=== PATIENT | female | born 1990 ===

== ENCOUNTER 2022-10-01 02:37 | Emergency (ER) | payer SELFPAY ==
[2022-10-01 03:25] VITALS: BP 102/70; PULSE 79; RESP 16; TEMP 37.2; O2SAT 98; BMI 25.7
[2022-10-01 03:50] VITALS: BP 93/59; PULSE 75; RESP 18; O2SAT 98
--- NOTE | 2022-10-01 04:15 | ED.NURSE ---
Pt's wound dressed with bacitracin and bandage.
--- NOTE | 2022-10-01 04:59 | ED_ITS ---
HPI - General Adult General Chief complaint: Ear/Nose/Throat Problem Source: patient Mode of arrival: ambulatory History of Present Illness HPI narrative: Patient was cared for during EMR down time. This note is placed retroactively. Some elements were cut and paste from a word document kept during time of patient management. Patient reports laceration to her leg just a few minutes prior to coming to the ED. She was drinking at a local bar and dancing when she accidentally put her foot into a bucket containing I sent here that was on the floor causing her to fall over. She scraped her leg on the side of the back it, causing a l aceration. No head injury, no loss of consciousness. She reports that she only had 1 beer. She can bear weight without difficulty, move her ankle knee and foot without complication. She is concerned that the laceration would need stitches. She does not use anticoagulants. Denies chance of . She is not sure when her last tetanus shot was performed. Denies any other injuries. Past medical history notable for viral pericarditis last April, no complications. Denies long-term medications, denies allergies, socially with no pertinent travel or other impairing substances. Exam Narrative: Exam Narrative: Generally she is awake alert pleasant cooperative not distressed. Blood pressure 102/70 heart rate 79 respiratory 16 O2 sats 98% on room air temp of 98.9?. The head is atraumatic eyes with normal-appearing pupils conjunctiva, normal conjugate gaze. Cardiovascular exam shows normal pedal pulses bilaterally with regular rate and rhythm. Breathing is nonlabored, can speak in full sentences with no increased respiratory effort. Skin shows only a single laceration, 4.5 cm in width, diagonal and linear over the left inner lower leg. Depth is to the fatty layer. No tendon or muscular involvement. Gait about 1 cm. Neurological exam, she can move both legs without difficulty. Muscular exam shows no effusions, injury to knees ankles or other joints. Medical Decision Making MDM Narrative Medical decision making narrative: Procedure:? Laceration repair.? Area was examined, 4 cm total length diagonal linear laceration noted on left inner lower leg.? Gapes about a total of 1 cm, slight bleeding and oozing.? Does not close well with pulling on the skin lines for reapproximation.? Sutures recommended.? Area was cleansed with alcohol wipe and injected with a total of 4 mL of 2% lidocaine with epinephrine with good anesthesia and blanching.? Was then cleansed with chlorhexidine.? Once hemostatic, 4 simple interrupted 4-0 Ethilon sutures were placed with excellent closure and hemostasis.? Patient tolerated well.? Tetanus shot is updated today and wound care discussed. Assessment laceration, now status post closure.? Plan suture removal in 7-10 days in clinic, please call for appointment. Discharge Plan Discharge Clinical Impression: Laceration of leg Patient Disposition: Home, Self-Care Condition: Improved Instructions: Laceration (DC) Additional Instructions: Lee Moore, Rm 6: We placed 4 stitches in your left inner leg.? Keep this covered with antibiotic ointment and or plain Vaseline and a Band-Aid.? He will need to make an appointment to have the stitches removed in the clinic in 7-10 days.? Please keep the original dressing on for the 1st 24 hours.? Following 24 hours, you may gently wash this once daily, reapply antibiotic ointment and or Vaseline and cover with a Band-Aid again.? It is normal to have a little bit of itching, tenderness, mild redness.? Any significant redness, increased swelling or pus drainage would warrant repeat evaluation.? Your tetanus shot was updated today.? You need a booster every 10 years.? I do not see any other significant signs of injury to the leg today.? If you have persistent pain lasting longer than a week, I would make a follow-up in the clinic for repeat evaluation Activity Level: No Restrictions Discharge Diet: Regular Follow Up/Referrals: Provider,Not a Local [Primary Care Provider] - Stand Alone Forms: [id number] Info Instructions
== END 2022-10-01 04:15 | disposition home or self-care (01) ==
PROVIDERS: Emergency Provider Family Medicine
DX: S81.812A Laceration without foreign body, left lower leg, initial encounter (principal); W26.9XXA Contact with unspecified sharp object(s), initial encounter
CPT/HCPCS: 12002; 90471; 90714; 99282; 99283

== ENCOUNTER 2024-04-18 19:50 | Outpatient (CLI) | payer BC, SELFPAY ==
[2024-04-18 19:53] VITALS: BP 113/78; PULSE 98; RESP 22; TEMP 36.9; O2SAT 96; BMI 28.7
--- NOTE | 2024-04-18 20:27 | ED.GENADULT ---
HPI - General Adult General Chief complaint: OB/Uterine Contractions Stated complaint: 26 weeks preg, bleeding, high risk Time Seen by Provider: 04/18/24 20:11 History of Present Illness HPI narrative: This 33-year-old female is 26 weeks and comes in with some suprapubic pain and small amount of blood discharge. She is anxious about these findings. She arrives with normal vital signs. She typically would go to the OB department however they were very busy there at the time apparently so the patient was brought in here and 1 of the OB nurses came to do monitoring. Related Data Home Medications ?Medication ?Instructions ?Recorded ?Confirmed docosahexaenoic acid PO 04/18/24 Allergies Allergy/AdvReac Type Severity Reaction Status Date / Time No Known Drug Allergies Allergy Verified 04/18/24 20:02 Review of Systems Status of ROS: Reports: 10 or more systems reviewed and unremarkable except as noted in History and below Narrative: Constitutional: No fevers, no weight gain or loss. Eyes: No discharge. No vision changes. HENT: No congestion, no sore throat, no ear pain. Cardiovascular: No chest pain, no palpitations. Respiratory: No shortness of breath, no wheezes, no cough. Gastrointestinal: No vomiting, no diarrhea. Abdominal pain as described above. Genitourinary: No dysuria, no hematuria. Musculoskeletal: Normal range of motion. Skin: No rashes, no pruritis. Neurological: No dizziness, weakness, sensory change, speech change. Endo/Heme/Allergies: No bruising or bleeding. No polydipsia. Pysch: no suicidality, no anxiety, no insomnia. All other systems reviewed and are negative. [facility] Medical History (Updated 04/18/24 @ 20:30 by Dion Norris MD) Acute viral pericarditis ?I30.1 - Infective pericarditis (ICD-10) Social History Smoking Status: Never smoker Do you use any of these nicotine containing products: None Second hand tobacco smoke exposure: No How often do you have a drink containing alcohol: never AUDIT-C Alcohol total score: 0 Non-prescribed substance use: denies use Exam Narrative: Exam Narrative: Constitutional: Well-developed, well-nourished, no acute distress. HEENT: Normocephalic, atraumatic. Neck: Normal range of motion. Nontender. Supple. Heart: Intact distal pulses. Lungs: No chest discomfort. No wheezes, rhonchi, or rales. Abdomen: Gravid. Back: Normal range of motion. Extremities: Normal range of motion. No injury. Skin: Intact. No rash. Warm. No erythema or pallor. Neurologic: No altered sensation. No weakness. Alert and oriented. Psychiatric: No suicidality. No anxiety or depression. No insomnia. Nursing notes and vitals signs are reviewed. Const: Vital Signs, click to edit/add: Vital Signs - 24 hr 04/18/24 19:53 Temperature 98.4 F Pulse Rate [Pulse Oximeter] 98 Respiratory Rate 22 Blood Pressure [Ri ght Upper Arm] 113/78 Pulse Oximetry 96 Oxygen Delivery Me thod Room Air Course Vital Signs Vital signs: Initial Vital Signs Temperature 98.4 F 04/18/24 19:53 Temperature Source Temporal Artery Scan 04/18/24 19:53 Pulse Rate 98 04/18/24 19:53 Respiratory Rate 22 04/18/24 19:53 Blood Pressure 113/78 04/18/24 19:53 Blood Pressure Mean 89 04/18/24 19:53 Blood Pressure Position Sitting 04/18/24 19:53 Pulse Oximetry 96 04/18/24 19:53 Oxygen Delivery Method Room Air 04/18/24 19:53 Vital Signs Temperature 98.4 F 04/18/24 19:53 Pulse Rate 98 04/18/24 19:53 Respiratory Rate 22 04/18/24 19:53 Blood Pressure 113/78 04/18/24 19:53 Pulse Oximetry 96 04/18/24 19:53 Oxygen Delivery Method Room Air 04/18/24 19:53 Temperature 98.4 F 04/18/24 19:53 Pulse Rate 98 04/18/24 19:53 Respiratory Rate 22 04/18/24 19:53 Blood Pressure 113/78 04/18/24 19:53 Pulse Oximetry 96 04/18/24 19:53 Oxygen Delivery Method Room Air 04/18/24 19:53 Medical Decision Making MDM Narrative Medical decision making narrative: This patient is 26 weeks comes in for evaluation of her as she is having some abdominal pain small amount of blood on toilet paper. An OB nurse came and did monitoring and everything is looking really good. When there is availability in the OB department the patient will be transferred there for further testing and monitoring. Discharge Plan Discharge Clinical Impression: Abdominal pain affecting Patient Disposition: Admit to OB Condition: Stable Prescriptions: No Action docosahexaenoic acid [ DHA] PO Follow Up/Referrals: Provider,Not a Local [Primary Care Provider] -
--- NOTE | 2024-04-18 20:51 | CRLHL7_ITS ---
For Patients: As a result of the Century Cures Act, medical imaging exams and procedure reports are released immediately into your electronic medical record. You may view this report before your referring provider. If you have questions, please contact your health care provider. INDICATION: Check cervical length COMPARISON: None. TECHNIQUE: Real-time hahn-scale imaging of the pelvis was performed. FINDINGS: heart rate 157 beats per minute. Cervix is closed and measures 4.5 cm. Normal amniotic fluid with single deepest pocket 5.1 cm. Vertex position. Posterior placenta. IMPRESSION: Transvaginal measurement of the cervix performed which demonstrates the cervix to be closed and measures 4.5 cm. Dictated by Shay Santos MD @ 04/21/2024 9:10:44 AM (Electronically Signed)
[2024-04-18 21:03] VITALS: BP 117/56; PULSE 84; RESP 16; TEMP 36.7; O2SAT 98
[2024-04-18 21:19] LABS: Appearance Urine Cloudy (Clear); Bilirubin Urine Negative (Negative); Blood Urine 1+ (Negative); Color Urine Amber (Yellow); Glucose Urine Negative (Negative); Ketones Urine 2+ (Negative); Leukocyte Esterase Urine 1+ (Negative); Nitrite Urine Negative (Negative); Protein Urine 1+ (Negative); Specific Gravity Urine >= 1.030 (1.000-1.030)
[2024-04-18 21:22] LABS: Clue Cells <20% Clue Cells Seen (None Seen); Trichomonas No Trichomonas Seen (None Seen); Yeast No Yeast Seen (None Seen)
[2024-04-18 21:33] LABS: Bacteria Urine Moderate; Mucus Urine Moderate; Squamous Epithelial Cell Urine Moderate (None-Few)
[2024-04-18 21:54] LABS: Fetal Fibronectin* Negative (Negative)
[2024-04-18] MEDS: LACTATED RINGERS 1000 ML 1,000 ML 999 ML IV (22:24)
[2024-04-18] MEDS: NITROFURANTOIN MONOHYD MACRO 100 MG CAPSULE PO (22:44)
[2024-04-18] MEDS: metroNIDAZOLE 500 MG TABLET PO (22:45)
--- NOTE | 2024-05-08 13:19 | PC.OBNST ---
The provider's electronic signature indicates the NST is reactive/appropriate for gestational age. *Note to provider: If an addendum is required, open the patient's chart and click on the note under the Nurse/Allied Health tab.
== END 2024-04-18 23:05 | disposition home or self-care (01) ==
LOC: ED 20:58 → OB OUT 21:00 → OB 21:02
PROVIDERS: Emergency Provider Emergency Medicine Emergency Medical Services; Visit Provider Obstetrics & Gynecology
DX: Z34.90 Encounter for supervision of normal pregnancy, unspecified, unspecified trimester (principal)
CPT/HCPCS: 76815; 76817; 81001; 81003; 84112; 87086; 87210; 99284; G0463; A9270; J7120

== ENCOUNTER 2024-06-04 08:18 | Outpatient (CLI) | payer BC, SELFPAY | END 2024-06-04 08:19 | disposition home or self-care (01) | LOC: NFLDREF 06-06 04:18 | PROVIDERS: Visit Provider Obstetrics & Gynecology | DX: R73.09 Other abnormal glucose (principal) | CPT/HCPCS: 82951; 82952 ==

== ENCOUNTER 2024-06-18 12:49 | Outpatient (CLI) | payer BC, SELFPAY | END 2024-06-18 12:50 | disposition home or self-care (01) | PROVIDERS: Visit Provider Obstetrics & Gynecology | DX: Z34.91 Encounter for supervision of normal pregnancy, unspecified, first trimester (principal); Z3A.09 9 weeks gestation of pregnancy | CPT/HCPCS: 82728; 86787 ==

== ENCOUNTER 2024-07-02 15:37 | Outpatient (CLI) | payer BC, SELFPAY ==
[2024-07-03 15:34] LABS: Strep B DNA Probe Negative (Negative)
[2024-07-03 15:45] LABS: Strep B Susceptibility Needed? No
== END 2024-07-02 15:38 | disposition home or self-care (01) ==
LOC: NFLDREF 15:39
PROVIDERS: Visit Provider Obstetrics & Gynecology
DX: Z34.93 Encounter for supervision of normal pregnancy, unspecified, third trimester (principal); Z3A.36 36 weeks gestation of pregnancy
CPT/HCPCS: 87081; 87653

== ENCOUNTER 2024-07-09 05:16 | Inpatient (IN) | payer BC, SELFPAY ==
[2024-07-09] VITALS (19 sets, daily range): BP systolic 95–111; BP diastolic 62–76; PULSE 59–82; RESP 16–18; TEMP 36.4–36.6; O2SAT 96–100; BMI 32.5
[2024-07-09] MEDS: LACTATED RINGERS 1000 ML 1,000 ML 1200 ML IV ×2 (05:52→07:30)
[2024-07-09 06:13] LABS: Hemoglobin* 10.6 gm/dL (12.0-16.0)
[2024-07-09 06:26] LABS: Eosinophils Percent Auto 2.7 % (0.0-7.0); Hematocrit 34.2 % (33.0-51.0); Immature Granulocytes Pct Auto 0.6 %; Mean Corpuscular HGB Conc 31 gm/dL (32-36); Mean Corpuscular Hemoglobin 24 pg (26-34); Mean Corpuscular Volume 77 fL (80-100); Monocytes Percent Auto 6.2 % (0.0-11.0); Neutrophils Percent Auto 70.5 % (42.0-72.0); Platelet Count* 192 K/uL (140-440); RDW Coefficient of Variation % 17.2 % (11.5-15.5); Red Blood Count 4.44 m/uL (4.00-5.20); White Blood Count* 12.52 K/uL (4.50-11.00)
[2024-07-09 06:27] LABS: Slide Review Reflex No
--- NOTE | 2024-07-09 07:22 | P.OBHP_ITS ---
OB - H&P: HPI History of Present Illness Chief complaint: Maternity Narrative: Lee Moore is a 34 year old female admitted for scheduled repeat and surgical sterilization in the setting of newly diagnosed oligohydramnios. 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 Patient is feeling well today, no acute concerns. Denies contractions, vaginal bleeding or leaking of fluids. Endorses active movement. Understands why delivery is recommended at early term per MFM consult yesterday, discussed associated risks/benefits. Specific Issues/Plans G 5 P 3113 Transfer of care at 31 weeks Last pap 08/24/21 NIL -HPV. # history of x3. Plan for repeat delivery. # desires permanent sterilization at time of . Private insurance. # advanced maternal age Genetic screening: NIPT low risk Level 2 ultrasound: no anomalies; growth is consistent with dates; normal NELSON; cervix long and closed # history of preeclampsia. Patient states she wasn't advised to initiate daily aspirin. # history of prior children with congenital anomalies. -One daughter born with multicystic dysplastic right kidney. Alive and Well. -One daughter born with hypoplastic left heart syndrome. . Level 2US 02/27/24: normal Echo 03/26/24: normal cardiac activity. Plan: echo between 2 and 4 months; no change in delivery; no further f/u in cardiology Growth ultrasound every 4 weeks starting at 28 weeks with [facility] # myomata 3cm suggest serial growth ultrasounds if clinically relevant # failed her 1 hour glucose (136) and never scheduled her 3 hour glucose. (Their cut off was 130) To return to clinic next week for 3 hour glucose: passed # prior with growth restriction # rubella non immune. Recommend PP vaccine Covid: declined on 06/1812/20/23 labs: blood type O positive, antibody screen negative, hemoglobin 12.7, platelets 203, rubella 0.74/no detectable antibody, TPPA nonreactive, HBsAG nonreactive, HIV nonreactive, gc/chlam neg/neg, urine culture no growth, hepati tis c non reactive 01/31/24: NIPT: negative 04/25/24: hgb 11.1, 1 hour glucose: 136 Varicella titer - immune 1st ultrasound 12/20/23:live IUP; myomata 3cm - suggest serial growth if clinically relevant; corresponding sonographic and menstrual EGA and EDC Level 2 ultrasound on 02/27/24: no anomalies; growth is consistent with dates; normal NELSON; cervix long and closed 05/07/24: cephalic, posterior placenta, MVP 5.3 cm, EFW 22%, AC 12% 06/17/24 EFW 2192g at 31%ile with AC 42%ile. Follow up US around mid/late June (37 weeks) with M History of Present Dating criteria: based on LMP care: good care Ultrasounds: normal mid trimester US and other (Normal level 2 and echo) Labs Blood type: O (+) positive PFSH PFSH Medical History History of vaginal delivery (07/2007) Acute viral pericarditis ?I30.1 - Infective pericarditis (ICD-10) Surgical History (Updated 06/03/24 @ 21:56 by Joann Barraza CNP) History of 3 sections ?Z98.891 - History of uterine scar from previous surgery (ICD-10) Social History What is your current living situation?: I presently have a place to live Problems where you live: no known problems In the past 12 months, utilities in danger of being shut off: no In past 12 months, lack of transportation kept you from medical appts, meetings, work, or getting things needed for daily living: no In the past 12 mos, have been you worried that your food would run out before you had money to buy more?: never true In the past 12 mos, the food you bought just didn't last and you didn't have money to buy more?: never true Smoking Status: Never smoker Do you use any of these nicotine containing products: None Second hand tobacco smoke exposure: No How often do you have a drink containing alcohol: never AUDIT-C Alcohol total score: 0 Non-prescribed substance use: denies use How often does anyone, including family, friends and others, physically hurt you : never How often does anyone, including family, friends and others, insult or talk down to you: never How often does anyone, including family, friends and others, threaten you with harm: never How often does anyone, including family, friends and others, scream or curse at you: never Little interest or pleasure in doing things: several days Feeling down, depressed, or hopeless: several days Meds Home Medications and Allergies Home Medications ?Medication ?Instructions ?Recorded ?Confirmed ?Type ferrous sulfate 325 mg (65 mg 325 mg PO DAILY 07/09/24 07/09/24 History iron) tablet (Feosol) Allergies Allergy/AdvReac Type Severity Reaction Status Date / Time No Known Drug Allergies Allergy Verified 07/09/24 05:52 OB - H&P: Exam Physical Exam: Vital signs: Pulse BP Pulse Ox 80 109/76 97 07/09/24 05:45 07/09/24 05:45 07/09/24 05:46 Narrative: Physical exam: General: No acute distress Psych: Alert and oriented x3, full affect Heart: Regular rate and rhythm, no murmur rub or gallop Lungs: Clear to auscultation bilaterally Abdomen: Gravid. Otherwise soft and nontender. heart rate: Reactive NST. Baseline of 130 beats per minute, moderate variability, accelerations present, decelerations absent. Presentation: Cephalic by US. EFW 5lb 14 oz by M US yesterday OB - Results Labs Labs: Short CBC 07/09/24 Range/Units 05:54 WBC 12.52 H (4.50-11.00) K/uL Hgb 10.6 L (12.0-16.0) gm/dL Hct 34.2 (33.0-51.0) % Plt Count 192 (140-440) K/uL Assessment and Plan Assessment and plan (1) History of 3 sections: Problem comment: Son 08/2009; 12/2012 (daughter baby at 1Y from hypoplastic L heart); Daughter 04/2017. Status: Acute (2) Uterine fibroid: Status: Acute (3) History of poor growth: Status: Acute (4) History of gestational hypertension: Status: Acute (5) Family history of congenital anomalies: Problem comment: One child with multicystic dysplastic right kidney. Alive and well. One child with hypoplastic left heart syndrome. at 11mo of age. Status: Acute (6) Advanced maternal age in multigravida: Status: Acute Plan Ms. Moore is a 34yo admitted for repeat and surgical sterilization at 37w0d GA. Delivery was recommended by MFM in the setting of new oligohydramnios yesterday (NELSON 2.4cm, MVP 2.4cm). is otherwise complicated by AMA, Hx of C/S x3, history of congenital anomalies (hypoplasic left heart syndrome, multicystic kidney disease), history of preE and FGR in [place] or . Admit for scheduled repeat C/S and surgical sterilization. We discussed bilateral salpingectomy vs bilateral tubal ligation if entire tube cannot be safely removed. Patient strongly desires surgical sterilization. Discussed risks of surgery including bleeding, infection, damage to surrounding structures and medical complications such as VTE, heart attack and stroke. All questions a nswered. Written consent obtained. - Plan perioperative ancef - T/S and CBC on admission - Desires surgical sterilization, this has been discussed over several visits. Consent obtained. Private insurance.
[2024-07-09] MEDS: CEFAZOLIN 2 GM INJ IVP (07:27)
--- NOTE | 2024-07-09 08:35 | PM.OBPRCCS ---
Procedure Time Seen by Provider: 08:35 Date of procedure: 07/09/24 Pre-op diagnosis: Prior C/S x3, oligohydramnios, AMA, history of congenital anomaly in prior pregnancies, history of HTN and FGR Procedure Done: Global Will [facility] bill your pro fee for this procedure?: Yes Blood Loss Measurement Type: QBL (345) Bakri Used: No IV fluids (mL): 1,900 Urine Output (mL): 100 Surgeon: Wei Lloyd MD Anesthesia Type: Spinal Findings: Mild adhesive disease of the in for rectus abdominus to the peritoneum Mild adhesive disease between the bladder and lower uterine segment Bilateral fallopian tubes and ovaries notable for scattered tiny (<1cm) simple appearing cysts, right paratubal cyst adhesed to omentum life Live-born female Procedure Name: Repeat delivery, bilateral salpingectomy, removal of right paratubal cyst Procedure Description: Patient was taken to the operating room with IV running. She received cefazolin in preoperative prophylaxis. Spinal anesthesia was administered. Bailey catheter was inserted. She was prepped and draped in the usual sterile fashion. Anesthesia was tested and found to be adequate. A low-transverse skin incision along prior incision was made with a scalpel and carried through to the underlying layer of fascia with the scalpel. The subcutaneous fat was dissected off the underlying fascia with Bovie and blunt dissection. The fascia was nicked in the midline with a scalpel, and this incision was extended laterally with scissors. The rectus muscles were in the midline. Peritoneum was identified and entered bluntly. Resistance was noted with inferior rectus muscle adhesions to peritoneal cavity. These were taken down with care utilizing Bhavya forceps and electrocautery, ensuring safety of the bladder. Bovie and blunt dissection was used to widen the opening laterally. Yared O retractor was inserted and tightened down, providing excellent visualization of the lower uterine segment. The bladder reflection was found to be advanced along the lower uterine segment. A bladder flap was created with a combination of sharp and blunt dissection. A sinus of the left lower uterine segment was noted, care was made to avoid this with hysterotomy incision. Low-transverse uterine incision was made with a scalpel. Incision was widened bluntly. The infant's head was grasped through the hysterotomy in direct OP position and elevated to the hysterotomy. The remainder of the body delivered without incident with the help of fundal pressure. No nuchal cord was noted. Cord was clamped and cut after 30 seconds. was handed off to attending nurses. The placenta was delivered with gentle traction on the cord. The uterus was cleaned of all clots and debris with the dry lap pad. The hysterotomy was reapproximated with 0 Vicryl in a running, locked fashion. Second layer of the same suture was used in imbricating fashion to obtain hemostasis. Uterine tone was initially suboptimal, where an additional 10u of pitocin were administered (40U total). The adnexa were examined with findings noted above. The cul-de-sac and gutters were cleansed with dampened laparotomy sponge, removing any further clots and debris. Patient provided verbal consent again for surgical sterilization. The right fallopian tube and ovary were inspected with paratubal cyst noted from fimbriated end and adhesed to omentum. The distal paratubal cyst was grasped with Allis and was ligated and transected free from omentum with Ligasure. Excellent hemostasis noted. The fallopian tube was elevated with two Babcocks, where the tube was sequentially ligated and transected from the mesosalpinx using the Ligasure cautery device. We proceeded from the fimbriated end, lateral to medial, and the tube was amputated at the right uterine cornua. The same procedure was completed on the left. Specimens sent for pathology. Excellent hemostasis was noted throughout salpingectomy site. Hysterotomy was re-examined and hemostasis was noted. The Yared O retractor was removed. The hysterotomy was reexamined and found to be hemostatic. The rectus muscles were examined and found to be hemostatic. The fascia was reapproximated with looped PDS in a running fashion. Subcutaneous fat was irrigated and Bovie used on oozing vessels. The subcutaneous fat was reapproximated with 2-0 vicryl suture in a running fashion. The skin was closed with a subcuticular stitch of 3-0 monocryl. Surgical glue was applied above this. Patient tolerated procedure well was taken to recovery area in stable condition. Surgical debrief was completed. Specimens were right and left fallopian tube, right paratubal cyst (sent together) and placenta. details: - Liveborn female fetus - weight: 2600g - APGARs were 8 and 9 and at 1 and 5 minutes respectively Pathology: specimen obtained, sent to pathology Surgery Debrief Performed: Yes Condition: stable Disposition: floor
--- NOTE | 2024-07-09 09:03 | W.ANESCHARGE ---
Anesthesia Charges Start Date/Time Anesthesia Start Date: 07/09/24 Anesthesia Start Time: 07:20 Stop Date/Time Anesthesia Stop Date: 07/09/24 Anesthesia Stop Time: 08:48
--- NOTE | 2024-07-09 09:25 | W.ANESCHARGE ---
Anesthesia Charges Start Date/Time Anesthesia Start Date: 07/09/24 Anesthesia Start Time: 07:20 Stop Date/Time Anesthesia Stop Date: 07/09/24 Anesthesia Stop Time: 08:48
--- NOTE | 2024-07-09 09:26 | W.PM.NB ---
Nerve Block Nerve Block Time Seen by Provider: 08:35 Date Seen: 07/09/24 Type of block requested by surgeon for post-operative analgesia: TAP Time out performed: Yes Verification of patient name: Yes Verification of date of : Yes Site marking: site marked Name of person performing procedure: Javier Continuous monitoring Was continuous monitoring of O2 sat, B/P, cardiac monitor technician, recorded every 15 minutes?: Yes Procedure Checklist: sterile prep, needles and gloves Ultrasound guided. Images saved: Yes Medications given in 5ml increments after negative aspiration: Marcaine %: 0.25 mL: 30 Needle gauge: 20 and Exparel mL: 10 Patient tolerated procedure well: Yes Additional comments: Needle noted between internal oblique and transversus abdominus. Local spread visualized Block Charges Block Charge (with Pro Fee): TAP Bilateral Use of Ultrasound Machine for Block: Yes- US Guidance/pain block
[2024-07-09] MEDS: LACTATED RINGERS 1000 ML 1,000 ML 125 ML IV ×2 (10:06→17:49)
[2024-07-09] MEDS: KETOROLAC 30 MG/ML inj IVP ×2 (14:43→20:41)
[2024-07-10] VITALS: BP 112/72; PULSE 64; RESP 16; TEMP 36.8; O2SAT 98
[2024-07-10] MEDS: KETOROLAC 30 MG/ML inj IVP ×3 (02:32→15:47)
[2024-07-10 05:00] VITALS: BP 110/68; PULSE 68; RESP 16; TEMP 36.9; O2SAT 98
[2024-07-10 06:19] LABS: Hemoglobin* 9.1 gm/dL (12.0-16.0)
--- NOTE | 2024-07-10 07:46 | P.OBPN_ITS ---
OB - PN:Subj Subjective Date Seen: 07/10/24 Narrative: Lee is a 34 y.o. G 5 P 4 who was admitted to [facility] for repeat c/s for oligohydramnios. ?She had a section that was uncomplicated. The patient feels well. ?The pain is well controlled with current medications. ?She has no n ew complaints. ?She is breast feeding and reports things are going well. the patient has done well.? Vitals have been stable.? She has remained afebrile.? Has a good appetite, is tolerating a general diet. ?She is voiding without difficulty.? She is passing gas and has not had a bowel movement.? She is ambulating and denies any dizziness.? Has small amount of rubra lochia. OB - PN: Obj Exam Physical Exam: Vital signs: Temp Pulse Resp BP Pulse Ox O2 Del Method 98.4 F 68 16 110/68 98 Room Air 07/10/24 05:00 07/10/24 05:00 07/10/24 05:00 07/10/24 05:00 07/10/24 05:00 07/10/24 05:00 Narrative: GENERAL APPEARANCE:? normal affect, alert, no distress MOOD:? appropriate CHEST:? clear to auscultation HEART:? regular rate and rhythm ABDOMEN:? soft, non-tender the uterine fundus is 1 below Umbilicus, Midline and is appropriate for the stage of recovery. EXTREMITIES:? normal and no edema INCISION: Dressing in place; clean, dry, and intact Urinary Catheter Management: 2-way Urethral: Cath placed during this visit: yes, but has since been removed by the nurse Reason for continuing: decision to DC catheter Insertion date: 07/09/24 Insertion time: 07:35 Removal date: 07/09/24 Removal time: 22:45 OB - PN: Obj Data Labs Labs: Laboratory Results - last 24 hr 07/10/24 06:07 Hgb 9.1 L OB - PN: A/P Delivery Assessment and Plan (1) care and examination immediately after delivery: Status: Acute (2) Lactating mother: Status: Acute Plan day: 1 Plan: routine care Comments: Problems: Anemia plan: Routine postop , may see if needed Anemia Hgb 9.1. Iron supplement ordered orally every other day
[2024-07-10 09:04] VITALS: BP 99/66; PULSE 65; RESP 16; TEMP 36.6; O2SAT 92
[2024-07-10] MEDS: FERROUS SULFATE 325 MG TABLET PO (09:09)
[2024-07-10] MEDS: DOCUSATE SODIUM 100 MG CAPSULE PO (09:09)
[2024-07-10 15:42] VITALS: BP 103/66; PULSE 80; RESP 16; TEMP 36.9; O2SAT 93
[2024-07-10] MEDS: ACETAMINOPHEN 500 MG TABLET 1000 MG PO (18:40)
[2024-07-10] MEDS: IBUPROFEN 600 MG TABLET PO (20:21)
[2024-07-10 22:42] VITALS: BP 112/69; PULSE 79; RESP 16; TEMP 37; O2SAT 97
[2024-07-10] MEDS: LANOLIN CREAM 1 APPLIC TOPICAL (22:58)
[2024-07-10] MEDS: MEASLES,MUMPS,RUBELLA VACC/PF 1 DOSE INJ 1 EACH SUBCUT (23:09)
[2024-07-11] MEDS: ACETAMINOPHEN 500 MG TABLET 1000 MG PO ×4 (00:39→21:44)
[2024-07-11] MEDS: IBUPROFEN 600 MG TABLET PO ×3 (02:53→16:57)
[2024-07-11 03:42] VITALS: BP 111/69; PULSE 64; RESP 16; TEMP 36.9; O2SAT 96
[2024-07-11] MEDS: DOCUSATE SODIUM 100 MG CAPSULE PO (03:57)
--- NOTE | 2024-07-11 07:48 | PM.OBPNVD1 ---
OB - PN:Subj Subjective Date Seen: 07/11/24 Narrative: Lee is a 34 y.o. who was admitted to [facility] for repeat C/S.? She had an uncomplicated repeat .? ? The patient feels well.? The pain is well controlled with current medications.? She has no new complaints.? She is breast feeding and reports things are going well.? the patient has done well.? Vitals have been stable.? She has remained afebrile.? Has a good appetite, is tolerating a general diet.? She is voiding without difficulty.? She is passing gas and has had a bowel movement.? She is ambulating and denies any dizziness.? Has Small amount of rubra lochia.? OB - PN: Obj Exam Physical Exam: Vital signs: Temp Pulse Resp BP Pulse Ox O2 Del Method 98.4 F 64 16 111/69 96 Room Air 07/11/24 03:42 07/11/24 03:42 07/11/24 03:42 07/11/24 03:42 07/11/24 03:42 07/11/24 03:42 Narrative: GENERAL APPEARANCE:? normal affect, alert, no distress MOOD:? appropriate CHEST:? clear to auscultation HEART:? regular rate and rhythm ABDOMEN:? soft, non-tender the uterine fundus is fir At Umbilicus, Midline and is appropriate for the stage of recovery. EXTREMITIES:? normal and no edema Incision: Healing well, no surrounding erythema, abnormal induration or discharge Urinary Catheter Management: 2-way Urethral: Cath placed during this visit: yes, but has since been removed by the nurse Reason for continuing: decision to DC catheter Insertion date: 07/09/24 Insertion time: 07:35 Removal date: 07/09/24 Removal time: 22:45 OB - PN: A/P Delivery Assessment and Plan (1) care and examination immediately after delivery: Status: Acute (2) Lactating mother: Status: Acute Plan day: 2 Plan: routine care Comments: Assessment/Plan?G 5 P 4 status post uncomplicated repeat .? ?? 1.? Continue route PP cares? 2.? .? May see if desired? 3.? Anticipate discharge home tomorrow or the following day per pt preference? 4.? Acute anemia.? Iron supplement ordered?
[2024-07-11 09:29] VITALS: BP 102/67; PULSE 70; RESP 16; TEMP 36.7; O2SAT 97
[2024-07-11 18:16] VITALS: BP 121/77; PULSE 71; RESP 16; TEMP 36.7; O2SAT 98
[2024-07-11 18:18] LABS: Rapid Plasma Reagin (RPR) Non Reactive (Non Reactive)
[2024-07-11 21:50] VITALS: BP 115/79; PULSE 66; RESP 16; TEMP 36.6; O2SAT 97
[2024-07-12] MEDS: IBUPROFEN 600 MG TABLET PO ×2 (00:13→06:38)
[2024-07-12] MEDS: OXYCODONE 5 MG TABLET PO ×2 (06:38→11:06)
[2024-07-12 06:40] VITALS: BP 116/73; PULSE 70; RESP 18; TEMP 36.6; O2SAT 97
--- NOTE | 2024-07-12 08:41 | P.DS_ITS ---
DS: Providers Provider Time Seen by Provider: 08:41 Date Seen: 07/12/24 Date of admission: 07/09/24 05:16 Primary care physician: Not a Local Provider Admitting Clinician: Marichuy Lloyd MD Attending Physician on discharge: Marichuy Lloyd MD Date of Discharge: 07/12/24 DS: Diagnosis Discharge Diagnosis (1) Lactating mother: Status: Acute (2) care and examination immediately after delivery: Status: Acute Exam Narrative: Exam Narrative: Physical exam: General: No acute distress Psych: Alert and oriented x4, full affect HEENT: Normocephalic, atraumatic Heart: Regular rate and rhythm, no murmur rub or gallop Lungs: Clear to auscultation bilaterally Abdomen: Normoactive bowel sounds, soft, no tenderness, rebound, or guarding, no masses, no hepatosplenomegaly, no hernias Incision: Appropriately tender to palpation. Clean, dry, and intact. No erythema, induration, or abnormal discharge/breakdown Skin: No lesions or rashes Breasts: no nodules or masses, no nipple discharge, no axillary adenopathy Lower extremities: No edema or erythema Pelvic exam: No bleeding on pad. Const: Vital Signs, click to edit/add: Vital Signs - 24 hr 07/11/24 09:29 07/11/24 18:16 07/11/24 21:50 Temperature 98.0 F 98.0 F 97.9 F Pulse Rate [Blood Pressure Cuff] 70 71 66 Respiratory Rate 16 16 16 Blood Pressure [Le ft Arm] 102/67 121/77 115/79 Pulse Oximetry 97 98 97 Oxygen Delivery Me thod Room Air Room Air 07/12/24 06:40 Temperature 97.9 F Pulse Rate [Blood Pressure Cuff] 70 Respiratory Rate 18 Blood Pressure [Le ft Arm] 116/73 Pulse Oximetry 97 Oxygen Delivery Me thod Room Air OB - DS: Summary Hospital Course Hospital Course: The patient is a 34 year old G 5 P 3 at 37.0 weeks gestation that was admitted to the Center on 07/09/24 for schedule repeat delivery and bilateral salpingectomy due to oligohydramnios. She had an uncomplicated delivery. She delivered a viable female infant. She is breast feeding. Her breast milk just came in this morning. the patient has done well. She was initially struggling with patient control as she was apprehensive with taking oxycodone. However, since utilizing it, her pain has been well control led. Overnight patient had no complaints. She is tolerating a regular diet. She has passed flatus. She is ambulating without difficulty. Lochia - none today. She is urinating without mike. Patient denies chest pain, SOB, n/v, headache, RUQ pain, vision changes, dizziness. Time spent discussing smoking cessation with patient: more than 10 minutes Peripartum Data Infant delivery method: Repeat Section Procedures: Procedures Operation Date: 07/09/24 07:15 Actual Procedure Side Surgeon p Repeat Section, Bilateral Salpingectomy Bilateral Marichuy Lloyd MD [place] Gender: Female Time Spent with Patient Time attestation: Total time spent providing and/or coordinating discharge services: Time spent: Less than 30 minutes Discharge Plan Discharge Disposition: Home, Self-Care Date of Admission: 07/09/24 05:16 Attending Provider on Discharge: Sowmya Lane Primary Care Provider: Provider,Not a Local Condition: Stable Anticipated Discharge Date/Time: 07/12/24 08:55 Discharge Medications: No Action acetaminophen [Tylenol Extra Strength] 500 mg tablet 1,000 mg PO Q6H PRN (Reason: pain) 30 Days Qty: 60 0RF docusate sodium 100 mg capsule 100 mg PO DAILY 30 Days Qty: 30 0RF ferrous sulfate 325 mg (65 mg iron) tablet 325 mg PO Q48H 30 Days Qty: 15 0RF ibuprofen 600 mg tablet 600 mg PO Q6H PRN (Reason: Pain) 30 Days Qty: 60 0RF Lanolin (HPA) 100 % cream 1 applic topical Q1H PRN (Reason: skin irritation) 30 Days Qty: 21 0RF simethicone 80 mg tablet,chewable 80 - 160 mg PO Q4H PRN (Reason: Gas) 30 Days Qty: 60 0RF oxycodone 5 mg tablet 5 mg PO TID PRN (Reason: pain) 14 Days Qty: 20 0RF Discharge Orders: Discharge Order (Routine); Ordered 07/12/24 Ordered By: Sowmya Lane Consulting provider completed their portion of the discharge: No Patient Education: (DC) Additional Instructions: POSTOPERATIVE INSTRUCTIONS ACTIVITY No heavy lifting/pushing/pulling for 4-6 weeks. Do not lift anything more than about 10-15 lbs (such as laundry, groceries, children, pets), vacuum, push heavy doors or grocery carts, etc. You may climb stairs as tolerated. Do not put anything in the vagina for 6 weeks after surgery unless otherwise instructed by your doctor (including tampons, douching, sexual intercourse, etc). No driving for about 2 weeks after surgery, while you are taking narcotic pain medication, or until you feel that you are ready. Practice checking your blind spot and stepping hard on the brake. Avoid sitting or lying in bed for more than 2 hours at a time while you are awake to reduce your risk of blood clots. You may return to work when directed by your physician. Please contact your doctor if you need any return to work letters or medical leave paperwork to be completed. WOUND CARE You will have one large incision on your abdomen. There will be dissolvable stitches under your skin that do not need to be removed. You will also have surgical glue on the incisions and these may be removed like a Band-Aid when they curl up at the edges. Shower daily after surgery. Clean your incision with mild antibacterial soap and water. Pat your incision dry with a clean towel. No tub baths until wound is completely healed. Wash your hands frequently, especially before touching your incision, changing any dressings, after using the restroom, and before eating. PAIN MANAGEMENT Take your oral pain medication as needed. You should be taking Ibuprofen 600mg every 6 hours with 1 gram of Tylenol every 6 hours. You can take these together every six hours or alternate them every 3 hours. You should then take the oxycodone as needed if you have breakthrough pain on top of the Tylenol and Ibuprofen. Some pain medications can cause constipation so you should take a stool softener (i.e. colace) while you are on these medications. You may also take milk of magnesia or Miralax for constipation. WHAT TO EXPECT AT HOME Recovery from surgery is generally 4-6 weeks, but sometimes longer for more strenuous activity. It is normal to be very tired during this time. It is normal to have some drainage or a small amount of vaginal bleeding after surgery which may last up to 6 weeks. You will most likely experience gas pain, abdominal swelling, or shoulder pain for 24-72 hours after surgery. A warm shower, heating pad, and/or walking may help. WHEN TO CALL YOUR DOCTOR : Fever (>100.4?F or 38.0?C) or chills. Incision problems such as redness, warmth, swelling, or foul smelling drainage. Severe nausea or persistent vomiting. Bright red vaginal bleeding (soaking >1 pad/hour) or foul smelling vaginal drainage. Severe pain not relieved with pain medication. Pain and swelling in your legs, especially if it is only on one side and not the other. Pain with urination, cloudy urine, or foul smelling urine. Or if you have any other problems or questions. CALL 911 OR GO TO THE EMERGENCY ROOM IF YOU HAVE: Any shortness of breath, difficulty breathing, or chest pain. Follow Up Appointments: Provider,Not a Local [Primary Care Provider] - Forms: [employer] Info Instructions
[2024-07-12 10:44] VITALS: BP 107/64; PULSE 80; RESP 20; O2SAT 98
[2024-07-12] MEDS: DOCUSATE SODIUM 100 MG CAPSULE PO (11:05)
[2024-07-12] MEDS: FERROUS SULFATE 325 MG TABLET PO (11:05)
[2024-07-12] MEDS: ACETAMINOPHEN 500 MG TABLET 1000 MG PO (11:05)
== END 2024-07-12 11:50 | disposition home or self-care (01) | DRG 540 ==
PROVIDERS: Admitting Provider Obstetrics & Gynecology; Visit Provider Obstetrics & Gynecology
PROC: 10D00Z1 Extraction of Products of Conception, Low, Open Approach (ICD-10-PCS; CPT 59514; principal; 2024-07-09 07:15)
DX: O34.211 Maternal care for low transverse scar from previous cesarean delivery (principal); Z3A.37 37 weeks gestation of pregnancy; O41.03X0 Oligohydramnios, third trimester, not applicable or unspecified; Z30.2 Encounter for sterilization; G89.18 Other acute postprocedural pain; O34.13 Maternal care for benign tumor of corpus uteri, third trimester; D25.9 Leiomyoma of uterus, unspecified; Z78.9 Other specified health status; O90.81 Anemia of the puerperium; D64.9 Anemia, unspecified; Z82.79 Family history of other congenital malformations, deformations and chromosomal abnormalities; Z37.0 Single live birth
CPT/HCPCS: 01961; 36415; 64488; 76942; 85018; 85025; 86592; 86850; 86900; 86901; 88302; 88307; A9270; C9290; J0665; J0690; J1100; J1885; J2274; J2371; J2405; J2590; J7120

== ENCOUNTER 2024-10-22 14:27 | Outpatient (CLI) | payer BC, SELFPAY ==
--- NOTE | 2024-10-22 16:13 | P.LACCB_ITS ---
Consult Note - Mom Date of Visit Date of visit: 10/22/24 Reason for consultation: Assistance Needed Visit Code: Visit Patient's Information Phone number: [phone] : 5 Para: 4 Allergies No Known Drug Allergies Allergy (Verified 09/18/24 12:44) Mother's Medical History: Medical History (Updated 07/20/24 @ 00:01 by Background Bre) History of vaginal delivery (07/2007) Acute viral pericarditis ?I30.1 - Infective pericarditis (ICD-10) Delivery Information Delivery type: Primary C/S; Non-Labored Gestational Age: 37 Gestational Weight For Age: AGA Weight: 2.6 kg Baby's Information Baby's Age at Visit: 3.5 months Baby's Provider or Clinic: [facility] Jaundice: No Past Experience Past Experience: Yes Current Frequency of Day Feedings: every 2-3 hrs Frequency of Night Feedings: one 5.5 hr sretch Both Breasts: Yes Length of Time: 5-10 min at night; 15 min feedings during the day Pumping Pumping: Yes Quantity Pumped: 2-3oz/pump; 6-7 oz total/day Supplementing EBM Supplement: No Formula Supplement: No Baby Elimination Number of Wet Diapers a Day: ea feeding Number of BM a Day: 2-3 yellow/brown in color Breast/Nipple Condition Breast Shape: Round Engorgement: No Maternal Nipple Condition - Left: Common Nipple Maternal Nipple Condition - Right: Common Nipple Sore Nipples: No Baby Assessment Skin: Normal Tongue/frenulum: Normal/elastic Palate: Average Lips: Relaxed and Symmetrical Jaw Alignment: Symmetrical Onsite Observation Pre-Feed weight: 5.494 kg Position: Other (Koala hold, baby prefers; mom states she has a fast/strong letdown) Attachment/latch-on achieved: Easily Suck pattern: Suck burst and normal rest Swallow: Gulping Behavior following feed: Alert, content Assessments/Interventions Assessments/Interventions: Bottle refusal issue: Mom introduced the bottle to baby Krish around 7-8 weeks of age She took the bottle well for about 3 weeks during the daytime feedings and would breastfeed at night Then one weekend, mom breastfed her over the weekend rather than doing a bottle and come Sunday morning, baby didn't want to take the bottle anymore. Mom tried for about 2 days, baby was just crying and not having it. Mom took a break from trying; now mom has returned to work for 3 weeks and baby still not taking a bottle. Mom is bringing baby to work with her and nursing her when needed but can't keep up with this plan for much longer. Mom has tried a variety of bottles/nipples and had multiple try the bottle without success. Looking for ideas to help get baby used to bottle again. Baby will allow a bottle nipple (without bottle attached) in her mouth, mouths it a little, doesn't fuss or turn away from it Has good range of motion with her tongue, allows a gloved finger into her mouth for oral exam Feeding Plan: 1. Let your baby play with/suck/chew on the bottle nipple with NO food in it first. Try one bottle nipple and stick with it vs trying multiple ones since the variety hasn't been helping. 2. Once your baby is comfortable with the nipple being in their mouth you?ll want to try dipping the nipple in expressed milk and letting them suck on it 3. If you can?t get your baby to suck on a bottle nipple, pacifier, OR your finger and you?ve tried this over and over for at least 3 days 4. Once you?ve got baby used to sucking on the bottle nipple, hand them an empty bottle to play with/get used to. Again, keep it low pressure and fun. 5. You're ready to move on to a bottle with something IN it! You?ll want to gently lay the bottle nipple vertically against baby?s lips so they open their mouth. ?You then gently move the bottle nipple into their mouth, angling UP towards the roof of their mouth, allowing them to suck it in at their own pace. 6. Paced bottle feeding still applys here so baby can control the flow of the mynor 7. Here are some tips if baby is seeming ready to try the bottle, but also still a bit hesitant * Hold baby facing out and walk around * Wear baby in a baby carrier or sling (and move!) * Go outside and show baby distracting, colorful things * Bounce on a yoga ball or gently bounce baby on your knee * Distract baby with a shiny loud obnoxious light-up moving toy * Call in a pet or an older sibling and bribe them into being extra fascinating * White noise is your friend here; try it (and then try it even louder) * Hold baby as if they are nursing (snuggle them up close to you, belly to belly; or in the Koala hold since that is what Krish prefers) * Offer the bottle when baby is juuuust waking up and hungry but still sleepy, like a dream feed * Try laying baby on their side (in your lap, or in the colic hold in your arms) Follow-Up Suggested follow up: Appointment as needed Time Spent Time spent with patient (min): 60 Meds Home Medications and Allergies Allergies Allergy/AdvReac Type Severity Reaction Status Date / Time No Known Drug Allergies Allergy Verified 09/18/24 12:44
== END 2024-10-22 14:28 | disposition home or self-care (01) ==
PROVIDERS: Visit Provider Obstetrics & Gynecology
DX: Z39.1 Encounter for care and examination of lactating mother (principal)
CPT/HCPCS: G0463